=== PATIENT | female | born 1945 | race Caucasian/White ===

== ENCOUNTER → 2022-08-21 09:01 | Outpatient (CLI) | payer MEDICARE, SELFPAY ==
--- NOTE | ~2022-08-21 | US_ITS ---
EXAMINATION: US thyroid DATE: 08/21/2022 09:19 INDICATION: Thyrotoxicosis TECHNIQUE: Multiple ultrasound images of the thyroid were obtained. COMPARISON: 07/06/2017 and 09/17/2013 FINDINGS: The right thyroid lobe measures 0.9 x 2.1 x 1.9 cm. The left thyroid lobe measures 5.4 x 1.8 x 1.4 c m. Thyroid isthmus measures 9 mm in thickness. There is coarsened echogenicity and increased vascular flow throughout the thyroid which can be seen with thyroiditis. 9 mm solid hypoechoic nodule with il l-defined margins and internal echogenic foci at the superior right thyroid lobe (TI-RADS 5, highly s uspicious , FNA if >=1.0 cm, annual followup is >0.5 cm). 2.1 cm solid hypoechoic nodule with smooth margins and without echogenic foci in the inferior right thyroid lobe (TI-RADS 4, moderately suspicio us , FNA if >=1.5 cm, annual followup is >=1 cm). 1.1 cm solid isoechoic nodule with smooth and ill-d efined margins and without echogenic foci at the inferior left thyroid lobe (TI-RADS 3, mildly suspic ious , FNA if >=2.5 cm, annual followup is >=1.5 cm). Each of these nodules is not significantly st[place] ged since the earlier study on 2013. IMPRESSION: 1. No significant interval change since 2013 in 3 thyroid nodules. Although the largest 2.1 cm TI RAD S 4 right thyroid nodule meets criteria for ultrasound-guided biopsy, given the lack of change in ove r 9 years and this almost certainly benign and could consider continued ultrasound follow-up. Reviewed, dictated and finalized at location A. IMPRESSION: 1. No significant interval change since 2013 in 3 thyroid nodules. Although the largest 2.1 cm TI RADS 4 right thyroid nodule meets criteria for ultrasound-gu ided biopsy, given the lack of change in over 9 years and this almost certainly benign and could consider continued ultrasound follow-up.
== END ==
PROVIDERS: PCP Internal Medicine Endocrinology, Diabetes & Metabolism; Visit Provider Internal Medicine Endocrinology, Diabetes & Metabolism
DX: E05.90 Thyrotoxicosis, unspecified without thyrotoxic crisis or storm (principal); E04.2 Nontoxic multinodular goiter
CPT/HCPCS: 76536